=== PATIENT | male | born 2000 | race Caucasian/White ===

== ENCOUNTER 2020-04-11 15:11 | Emergency (ER) | payer OTHER | END 2020-04-11 19:05 | disposition other institution (70) | LOC: ED 15:11 | DX: Z02.89 Encounter for other administrative examinations (principal) ==

== ENCOUNTER 2020-04-11 15:11 | Emergency (ER) | payer OTHER ==
[~2020-04-11] VITALS: Ht 167.6 cm; Wt 63.5 kg
[2020-04-11 15:18] VITALS: Ht 167.6 cm; Wt 63.5 kg
[2020-04-11 17:05] LABS: BASOPHIL % 0.6 % (0.2-1.5); PLATELET COUNT 280 x10^3mcL (152-348); RED CELL DISTRIBUTION WIDTH 12.9 % (12.1-16.2)
[2020-04-11 17:30] LABS: CALCIUM 8.8 mg/dL (8.5-10.1); CARBON DIOXIDE 26.1 mmol/L (21-32); CHLORIDE SERUM 104 mmol/L (98-107); GFR1 > 60 mL/min; GLUCOSE SERUM 96 mg/dL (74-106); POTASSIUM SERUM 3.4 mmol/L (3.5-5.1); SODIUM SERUM 139 mmol/L (136-145)
[2020-04-11 17:39] LABS: ALKALINE PHOSPHATASE 157 U/L (46-116); ALT/SGPT 14 U/L (16-63); AST/SGOT 16 U/L (15-37); BILIRUBIN TOTAL 0.3 mg/dL (0.20-1.00); LIPASE 77 IU/L (73-393); T4(THYROXINE) 6.9 ug/dL (4.7-13.3); TOTAL PROTEIN, SERUM 7.6 g/dL (6.4-8.2)
[2020-04-11 18:31] LABS: rbc morphology (normal/abnorm) NORMAL (NORMAL)
[2020-04-11 19:05] VITALS: BP 114/65
== END 2020-04-11 19:05 | disposition other institution (70) ==
LOC: ED 15:11
PROVIDERS: Emergency Medicine
DX: R00.0 Tachycardia, unspecified (principal); F10.129 Alcohol abuse with intoxication, unspecified
CPT/HCPCS: G0480; J2060; J7030